=== PATIENT | male | born 1950 | race Caucasian/White ===

== ENCOUNTER → 2017-11-12 02:21 | Outpatient (CLI) | payer OTHER, SELFPAY ==
[2017-11-12 11:39] LABS: Anion Gap 5.9 mmol/L (3-11); BUN 17 mg/dL (7-18); CO2 30.1 mmol/L (21.0-32.0); CREATININE 1.17 mg/dL (0.70-1.30); Calcium 9.5 mg/dL (8.5-10.1); Chloride 104 mmol/L (98-107); Cholesterol 220 mg/dL (50-200); Glucose 115 mg/dL (70-100); HDL Cholesterol 40 mg/dL (40-60); LDL CHOLESTEROL 164 mg/dL (<100); Potassium 4.6 mmol/L (3.5-5.1); Sodium 140 mmol/L (136-145); Triglyceride 129 mg/dL (30-150)
== END ==
PROVIDERS: PCP Emergency Medicine; Visit Provider Emergency Medicine
DX: E78.5 Hyperlipidemia, unspecified (principal); I10 Essential (primary) hypertension
CPT/HCPCS: 36415; 80048; 80061; 83721

== ENCOUNTER → 2017-12-24 10:51 | Outpatient (BNVA) | payer OTHER, SELFPAY | PROVIDERS: Visit Provider Surgery | DX: K21.9 Gastro-esophageal reflux disease without esophagitis (principal); Z12.11 Encounter for screening for malignant neoplasm of colon ==

== ENCOUNTER 2018-01-16 02:44 | Outpatient (CLI) | payer OTHER, SELFPAY ==
[2018-01-16 11:36] LABS: Cholesterol 222 mg/dL (50-200); HDL Cholesterol 40 mg/dL (40-60); LDL CHOLESTEROL 170 mg/dL (<100); Triglyceride 120 mg/dL (30-150)
== END 2018-01-16 03:04 ==
PROVIDERS: PCP Emergency Medicine; Visit Provider Emergency Medicine
DX: E78.5 Hyperlipidemia, unspecified (principal)
CPT/HCPCS: 36415; 80061; 83721

== ENCOUNTER 2018-01-20 08:28 | Day surgery (SDC) | payer OTHER, SELFPAY ==
[2018-01-20 08:30] VITALS: BP 98/65; PULSE 59; RESP 18; TEMP 36.4; O2SAT 18
[2018-01-20] MEDS: Lactated Ringers 1,000 ML 30 ML IV (09:06)
--- NOTE | 2018-01-20 11:17 | W.COLOREPORT ---
Date of service: 01/20/18 Time of Service: 11:17 Colonoscopy Report Date of procedure: 01/20/18 Surgeon: Devin Swan Anesthesia proc note operative: MAC (Nelson Laird, HOWARD) Complications: None Disposition: same day Prep: Miralax/Dulcolax
--- NOTE | 2018-01-20 11:18 | W.PM.DSUDISC ---
Discharge Plan Disposition Patient Disposition: HOME Condition: Good Discharge Details Reason For Visit: GERD, Tylosis, and Colorectal cancer screening Attending Provider: Devin Swan Primary Care Provider: Robert Bajwa Home Meds and New Rx's Prescriptions: Continue multivitamin [Once Daily] 1 EACH tablet 1 tab PO DAILY RF: 0 omega-3 fatty acids-fish oil [One-Per-Day [place]-3] 1 EACH capsule,delayed release(DR/EC) 1 ea PO DAILY RF: 0 CALCIUM 600 + D TABLET 1 EACH tablet 1 ea PO DAILY RF: 0 timolol maleate 15 ML drops 1 drp OU BID RF: 0 albuterol sulfate [ProAir HFA] 8.5 GM HFA aerosol inhaler 1 - 2 puff Inhalation Q4H PRN Qty: 3 RF: 6 ranitidine HCl [Zantac Maximum Strength] 150 MG tablet 1 tab PO BID Qty: 180 RF: 4 lisinopril-hydrochlorothiazide 1 EACH tablet 1 tab-cap PO DAILY Qty: 90 RF: 4 montelukast [Singulair] 10 mg tablet 10 mg PO DAILY Qty: 90 RF: 3 lactobacillus combination no.4 [Probiotic] 3 billion cell Capsule 2 tab PO DAILY RF: 0 Discharge Instructions Instructions: Colonoscopy (DC), Upper Endoscopy (DC) Activity:: Activity as Tolerated Diet:: As Tolerated Discharge Orders Discharge Orders: Discharge Order (Routine); Ordered 01/20/18 Ordered By: Devin Swan DS: Diagnosis Discharge Diagnosis (1) GERD (gastroesophageal reflux disease): Status: Chronic (2) Encounter for screening colonoscopy: Status: Acute (3) Tylosis: Status: Chronic
--- NOTE | 2018-01-20 11:32 | STOM_PTH ---
PATIENT: Nelson Bray LOC: [facility] U#:[id number] AGE/SX: 67/M ROOM: RE01/20/[address]: Devin Swan DO : 1950 BED: DIS: 01/20/2018 SPEC #: [id number] RECD: 01/20/18 13:03 STATUS: SILVINO REQ #: [id number] BAYLEE: 01/20/18 11:[address]: Devin Swan DEPT: Surgical Specimen RECD BY: Dorcas Zambrano ENTERED: 01/20/18 13:05 SP TYPE: STOMACH OTHR DR: Robert Bajwa DO Tissues: 1 - STOMACH BIOPSY 2 - BIOPSY BOWEL Procedures: GROSS AND MICRO LEVEL 4 Comments: [id number]
[2018-01-20 13:02] VITALS: BP 109/75; PULSE 70; RESP 18; TEMP 36.4; O2SAT 99
--- NOTE | 2018-01-20 16:27 | W.COLOREPORT ---
Date of service: 01/20/18 Time of Service: 12:00 Colonoscopy Report Date of procedure: 01/20/18 Pre-op diagnosis general: 1. Gastroesophageal reflux disease 2. Tylosis 3. Fx H/O colorectal CA Post-op diagnosis procedure note: other (1. Gastritis 2. Sigmoid colon polyp 3. Moderate sigmoid diverticulosis) Procedure: 1. Esophagogastroduodenoscopy with biopsy by cold forceps 2. Colonoscopy to cecum with biopsy by cold forceps Surgeon: Devin Swan Anesthesia proc note operative: MAC (Nelson Laird CRNA; ASA 2 Mallampati class II) Estimated blood loss (mL): 1 Pathology: other (1. Gastric antral biopsy 2. Sigmoid colon polyp) Complications: None Disposition: same day Indications: 67 y/o male with history of a hiatal hernia, Tylosis Palmaris and Plantaris presents for colonoscopy and EGD screening pre-op. His last screening was in 2010, which was remarkable for polyps. He reports a family history of colon cancer in his maternal grandmother. He denies any changes in bowel habits including bloody or black tarry stools, abdominal pain, diarrhea or constipation.He denies constitutional symptoms. He reports that his GERD has been more symptomatic post prandial over the past few months despite his continued use of Zantac BID. He feels that this is related to his pharmacy changing brands for his medication. Tylosis can have a high degree of association with esophageal cancer, and he has not had a screening upper endoscopy Prep: Miralax/Dulcolax (Prep quality good) Findings: In examining the upper gastrointestinal tract from the oropharynx to the third portion of the duodenum, the patient was again noted to have a small hiatal hernia, which is not new, and gastritis was noted in the stomach. In examining the colon from cecum to anus, a less than 1 cm in greatest diameter polyp was identified in the sigmoid colon removed by cold biopsy forceps. Again, the patient was noted moderate sigmoid diverticulosis of the colon. Procedure Description: The patient was brought to the procedure room. Monitoring for telemetry, end-tidal CO2, O2 saturation, blood pressure were applied. An appropriate timeout was taken reviewing the patient's identification, allergies, medications,and procedure. Sedation was titrated for effect by the PAPER MAKING MACHINE OPERATOR. The upper endoscopy was performed first. An Olympus variable stiffness endoscope was advanced from the oropharynx to the third portion of the duodenum without difficulty. The scope was then withdrawn in circumferential manner from the duodenum back to the oropharynx. In performing withdrawal of the scope, the duodenum appeared grossly normal. The scope was withdrawn into the gastric antrum and retroflexed to examine the entire stomach. Multiple shallow ulcerations were noted in the gastric antrum, and multiple biopsies were taken of these and submitted for pathology. The remainder of the stomach including the lesser and greater curvatures anterior and posterior surfaces in the fundus all appeared grossly normal. The scope was then withdrawn to the GE junction which I measured at 35 cm The Z line was at 35 cm and appeared regular. There was a small hiatal hernia present which I measured from 35 cm to 31 cm. I withdrew the scope through the remainder of the esophagus all which appears grossly normal. The scope was then withdrawn terminating the upper endoscopy. The patient was then repositioned for colonoscopy. Sedation was titrated for effect again. Once adequate sedation was achieved, I performed a inspection of the external perineum, and a digitial rectal examination. No significant external abnormalities were noted. On digital rectal examination, there was no blood, no masses, good rectal tone. I advanced the colonoscope from the anus to the cecum under direct visualization. The cecum was identified by the ileal-cecal valve, and the appendiceal orifice. The scope was then withdrawn in circumferential manner from the cecum to the rectum. A single polyp was found in the sigmoid colon which was less than 1 cm in greatest diameter and removed by cold biopsy forceps. Again, seen in the sigmoid colon was moderate sigmoid diverticulosis, but no other abnormalities were noted of the colon. The scope was then withdrawn into the rectum, and retroflexed. No abnormalities were noted of the rectum or anorectal junction. The scope was then withdrawn, terminating the procedure. There were no complications during the procedure, and the patient tolerated the procedure well. The patient was returned to the day surgery recovery area in good condition. Plan: We will await pathology before making further recommendations.
== END 2018-01-20 13:40 | disposition home or self-care (01) ==
PROVIDERS: PCP Emergency Medicine; Visit Provider Surgery
PROC: (CPT 43239; principal; 2018-01-20 10:15)
DX: K21.9 Gastro-esophageal reflux disease without esophagitis (principal); L85.1 Acquired keratosis [keratoderma] palmaris et plantaris; K31.89 Other diseases of stomach and duodenum; K29.60 Other gastritis without bleeding; K44.9 Diaphragmatic hernia without obstruction or gangrene; Z12.11 Encounter for screening for malignant neoplasm of colon; D12.5 Benign neoplasm of sigmoid colon; K57.30 Diverticulosis of large intestine without perforation or abscess without bleeding; Z87.19 Personal history of other diseases of the digestive system; F10.10 Alcohol abuse, uncomplicated; I10 Essential (primary) hypertension
CPT/HCPCS: 43239; 45380; 88305; J2250; J3010

== ENCOUNTER 2020-01-28 02:49 | Outpatient (CLI) | payer OTHER, SELFPAY ==
[2020-01-28 10:37] LABS: BUN 18 mg/dL (7-18); CREATININE 1.11 mg/dL (0.70-1.30); Calcium 9.8 mg/dL (8.5-10.1); Calculated LDL 127 mg/dL (<100); Chloride 103 mmol/L (98-107); Cholesterol 196 mg/dL (<200); Glucose 147 mg/dL (74-106); HDL Cholesterol 44 mg/dL (40-60); Potassium 4.2 mmol/L (3.5-5.1); Sodium 139 mmol/L (136-145); Triglyceride 126 mg/dL (<150)
[2020-02-03 10:23] LABS: PSA, Screening 0.4 ng/mL (0-4.5)
== END 2020-01-28 03:09 ==
PROVIDERS: PCP Emergency Medicine; Visit Provider Emergency Medicine
DX: E78.5 Hyperlipidemia, unspecified (principal); I10 Essential (primary) hypertension; Z12.5 Encounter for screening for malignant neoplasm of prostate
CPT/HCPCS: 36415; 80048; 80061; 84153

== ENCOUNTER 2020-02-11 01:47 | Outpatient (CLI) | payer OTHER, SELFPAY ==
[2020-02-11 12:45] LABS: Hemoglobin A1C 6.1 % (<5.7)
== END 2020-02-11 02:07 ==
PROVIDERS: PCP Emergency Medicine; Visit Provider Emergency Medicine
DX: E11.9 Type 2 diabetes mellitus without complications (principal)
CPT/HCPCS: 36415; 83036

== ENCOUNTER 2020-08-17 03:19 | Outpatient (CLI) | payer OTHER, SELFPAY ==
[2020-08-17 14:19] LABS: Hemoglobin A1C 6.3 % (<5.7)
[2020-08-17 14:51] LABS: Anion Gap 9.9 mmol/L (3-11); BUN 13 mg/dL (7-18); CO2 30.1 mmol/L (21.0-32.0); CREATININE 1.1 mg/dL (0.70-1.30); Calcium 9.7 mg/dL (8.5-10.1); Calculated LDL 99 mg/dL (<100); Chloride 101 mmol/L (98-107); Cholesterol 163 mg/dL (<200); Glucose 121 mg/dL (74-106); HDL Cholesterol 47 mg/dL (40-60); Potassium 4.4 mmol/L (3.5-5.1); Sodium 141 mmol/L (136-145); Triglyceride 87 mg/dL (<150)
== END 2020-08-17 03:20 | disposition home or self-care (01) ==
LOC: LBO 03:19
PROVIDERS: PCP Emergency Medicine; Visit Provider Emergency Medicine
DX: I10 Essential (primary) hypertension (principal); E78.5 Hyperlipidemia, unspecified; R73.03 Prediabetes
CPT/HCPCS: 36415; 80048; 80061; 83036

== ENCOUNTER 2021-04-04 01:44 | Outpatient (CLI) | payer MEDICARE, SELFPAY ==
--- NOTE | 2021-04-04 | DI.MRI_ITS ---
Exam(s) MR UPPER JOINT RT WO EXAM: MR UPPER JOINT RT WO CLINICAL HISTORY: RT HAND/WRIST PAIN,M79.641,SWELLING RT WRIST,? EXTENSOR TENDON TENOSYNOVIT. TECHNIQUE: Multiplanar multisequence MRI was performed. COMPARISON: No exams were available for comparison FINDINGS: MR examination of the wrist was performed according to the usual protocol. Bones: There are cystic changes presumably on a degenerative basis involving the capitate, lunate, an d triquetrum. There is also a cysts cyst of the base of the 1st metacarpal. These findings are pres umably on a degenerative basis. There is narrowing of the cartilaginous joint spaces at multiple sit es in the carpus. Ligaments: No tear is seen involving the scapholunate, lunotriquetral, or TFC ligaments. The TFCC di sc and meniscal homolog appear intact. There is fluid in multiple carpal joints which is nonspecific. There is moderate soft tissue edema o lisa the ulnar aspect of the wrist. There is small quantity of fluid in the flexor digitorum tendon sheath. No gross tendon signal abnor mality seen but this could be associated with tenosynovitis. Extensor tendons show normal signal and no evidence of a tear. IMPRESSION: Degenerative changes of the carpus. Question tenosynovitis flexor digitorum associated with fluid in the tendon sheath at the level of th e carpal tunnel.. DATA REPOSITORY:
--- NOTE | 2021-04-04 10:41 | DI.VRAD_ITS ---
PROCEDURE INFORMATION: Exam: MR Right Upper Extremity Joint Without Contrast; Wrist Exam date and time: 04/04/2021 9:47 AM Age: 70 years old Clinical indication: Right; Prior surgery; Surgery date: 6+ months; Surgery type: Carpal tunnel 2014; Patient HX: Pain and swelling dorsal aspect of hand and wrist. No known injury TECHNIQUE: Imaging protocol: MR of the Right upper extremity without contrast. Exam focused on the wrist. COMPARISON: CR XR HAND 3 VIEW RIGHT 03/27/2021 2:25 PM (report not provided) FINDINGS: Bones and cartilage: There is moderate radiocarpal compartmental chondromalacia with very mild periarticular osteophyte formation. Mild osteophyte formation is present between some carpal bones and at the 1st carpometacarpal joint. Variable degenerative cystic changes are present within some carpal bones and the 1st metacarpal base. Some of these may represent erosion, particularly in the lunate and capitate. Joint spaces: The joint spaces are normally aligned. There are small effusions of the distal radioulnar joint, radiocarpal compartment, midcarpal compartment and 1st carpometacarpal joint. Scapholunate ligament: Mild increased signal without discrete defect or widening, suggesting sprain. Lunotriquetral ligament: Unremarkable. No tear. Triangular fibrocartilage complex: Unremarkable. No tear. Flexor compartment tendons: Small fluid is present in the flexor digitorum tendon sheath along the carpal tunnel. The flexor tendons themselves are intact. Extensor compartment tendons: Unremarkable. No tear. Muscles: Unremarkable. No acute abnormality. Soft tissues: Moderate subcutaneous edema is present about much of the wrist extending dorsally into the hand. Focus of artifact in the soft tissues over the volar aspect near the 1st metacarpal corresponds to metallic radiodensity on the radiographs. IMPRESSION: 1. Moderate nonspecific subcutaneous edema about the wrist extending into the dorsum of the hand. 2. Focus of artifact over the volar aspect near the 1st metacarpal corresponding to metallic radiodensity on radiographs of 03/27/2021. 3. Small fluid in the flexor digitorum tendon sheath along the carpal tunnel, suggesting tenosynovitis. 4. Degenerative changes as described. Potential osseous erosions, including in the lunate and capitate. Correlate as to any possible inflammatory arthritis. 5. Small effusions of the distal radioulnar and 1st carpometacarpal joints and radiocarpal and midcarpal compartments. 6. Sprain without tear of the scapholunate ligament. Dictated and Authenticated by: Mariano Brito MD. Ordering:DANITZA Klein MD
== END 2021-04-04 02:04 ==
PROVIDERS: PCP Emergency Medicine; Visit Provider Nurse Practitioner
DX: M25.531 Pain in right wrist (principal); M79.641 Pain in right hand; M79.89 Other specified soft tissue disorders; M19.031 Primary osteoarthritis, right wrist
CPT/HCPCS: 73221

== ENCOUNTER 2021-05-03 03:00 | Outpatient (CLI) | payer MEDICARE, SELFPAY ==
[2021-05-03 11:37] LABS: Hemoglobin A1C 6.3 % (<5.7)
[2021-05-03 12:35] LABS: ALT 25 U/L (16-63); Anion Gap 9.5 mmol/L (3-11); BUN 19 mg/dL (7-18); CO2 28.5 mmol/L (21.0-32.0); Calcium 9.9 mg/dL (8.5-10.1); Calculated LDL 115 mg/dL (<100); Chloride 102 mmol/L (98-107); Cholesterol 185 mg/dL (<200); Glucose 100 mg/dL (74-106); HDL Cholesterol 51 mg/dL (40-60); Potassium 4.4 mmol/L (3.5-5.1); Sodium 140 mmol/L (136-145); Triglyceride 99 mg/dL (<150)
== END 2021-05-03 03:01 | disposition home or self-care (01) ==
LOC: LBO 03:00
PROVIDERS: PCP Family Medicine; Visit Provider Family Medicine
DX: E78.5 Hyperlipidemia, unspecified (principal); I10 Essential (primary) hypertension; R73.03 Prediabetes
CPT/HCPCS: 36415; 80048; 80061; 83036; 84460

== ENCOUNTER 2022-05-13 00:56 | Outpatient (CLI) | payer MEDICARE, SELFPAY ==
[2022-05-13 13:04] LABS: Hemoglobin A1C 5.9 % (<5.7)
[2022-05-13 13:07] LABS: Anion Gap 5.2 mmol/L (3-11); BUN 18 mg/dL (7-18); CO2 30.8 mmol/L (21.0-32.0); CREATININE 1.3 mg/dL (0.70-1.30); Calcium 10.4 mg/dL (8.5-10.1); Calculated LDL 111 mg/dL (<100); Chloride 104 mmol/L (98-107); Cholesterol 198 mg/dL (<200); Glucose 110 mg/dL (74-106); HDL Cholesterol 54 mg/dL (40-60); Potassium 4.6 mmol/L (3.5-5.1); Sodium 140 mmol/L (136-145); Triglyceride 168 mg/dL (<150)
[2022-05-13 18:11] LABS: PSA, Screening 0.4 ng/mL (<=6.5)
[2022-05-13 20:27] LABS: Lab Add On Test DONE
[2022-05-14 18:40] LABS: Parathyroid Hormone,Intact 52 pg/mL (19-88)
== END 2022-05-13 00:57 | disposition home or self-care (01) ==
LOC: LOS 00:56
PROVIDERS: PCP Family Medicine; Visit Provider Family Medicine
DX: E78.5 Hyperlipidemia, unspecified (principal); I10 Essential (primary) hypertension; R73.03 Prediabetes; E87.1 Hypo-osmolality and hyponatremia; E83.52 Hypercalcemia; Z12.5 Encounter for screening for malignant neoplasm of prostate
CPT/HCPCS: 36415; 80048; 80061; 84153; 83036; 83970

== ENCOUNTER → 2023-01-01 13:55 | Outpatient (BNVA) | payer MEDICARE, SELFPAY | PROVIDERS: PCP Family Medicine; Referring Provider Family Medicine; Visit Provider Surgery | DX: Z12.11 Encounter for screening for malignant neoplasm of colon (principal) ==

== ENCOUNTER 2023-01-23 07:36 | Day surgery (SDC) | payer MEDICARE, SELFPAY ==
--- NOTE | 2023-01-22 17:16 | PDOC.DSDIS_ITS ---
Date of service: 01/23/23 Time of Service: 09:51 Discharge Plan Disposition Patient Disposition: Home Condition: Good Discharge Details Reason For Visit: Screening colonoscopy Attending Provider: Andrea Fernando Primary Care Provider: Dk Russell Home Meds and New Rx's Prescriptions: New famotidine [Pepcid] 40 mg tablet 40 mg PO DAILY Qty: 30 3RF Rx Instructions: Take 1 tablet by mouth every day. Continued vitamin B complex Tablet 1 tab PO DAILY Qty: 90 3RF lisinopril-hydrochlorothiazide 10-12.5 mg tablet 1 tab PO DAILY Qty: 90 4RF pravastatin 20 mg tablet 20 mg PO DAILY Qty: 90 3RF multivitamin [Once Daily] 1 EACH tablet 1 tab PO DAILY One-Per-Day [place]-3 1 EACH capsule,delayed release(DR/EC) 1 ea PO DAILY CALCIUM 600 + D TABLET 1 EACH tablet 1 ea PO DAILY timolol maleate 15 ML drops 1 drp OU BID fluticasone propionate 50 mcg/actuation spray,suspension 2 spray intranasal DAILY Qty: 48 4RF Rx Instructions: administer into each nostril Discontinued bisacodyl 5 mg tablet,delayed release (DR/EC) 5 mg PO ONCE Qty: 4 0RF Rx Instructions: Per Colonoscopy bowel prep instructions polyethylene glycol 3350 17 gram/dose powder 238 g PO ONCE Qty: 238 0RF Rx Instructions: For Colonoscopy bowel prep, as directed by office Discharge Instructions Instructions: Peptic Ulcer (GEN), Diverticulosis (GEN), Colorectal Polyps (GEN), Diverticulosis Diet (GEN) Additional Instructions: Nelson, we were able to complete your upper and lower endoscopies today without any difficulty. There were a few abnormal findings on your upper endoscopy. First, you have a few prepyloric gastric ulcers. These are small stomach ulcers in the area right before where your stomach connects to your small intestine. They appear to be simple ulcers to me, but I did do several biopsies to rule out any other sources of ulceration. I am adding a prescription for a medication to help reduce stomach acid, hopefully this will help the stomach ulcers to heal. Secondly, you have a hiatal hernia. A hiatal hernia occurs when the muscle around your swallowing pipe is slightly enlarged, allowing a small portion of your stomach to slip above the muscle from time to time. There is an operation to fix this, but in light of the fact that you you seem to have minimal symptoms, I do not think that surgery is warranted. Furthermore, it is an operation that I do not perform. If you would like a referral to a specialist to hear their opinion, I am more than happy to provide that. Lastly, you had a few small abnormalities along the length of your esophagus. Mostly they were in the midportion of the esophagus. They appear consistent with polyps to me. I performed multiple biopsies here to better clarify the nature of the tissue. Your colonoscopy also revealed a few abnormalities. First you have diverticulosis. Diverticula are weak spots in the colon wall that typically accumulate with age. They can become infected, and when that happens, patients typically have severe pain usually on the left side of their abdomen, or across the middle portion towards the bottom. This is usually associated with fevers. During those times, it should be treated with antibiotics. Otherwise, maintaining a balanced diet that is rich in fiber is probably the most useful strategy. You have some internal hemorrhoids as well. Finally, I did find 2 polyps. I removed these both. Just like the biopsies from the upper endoscopy, these will be sent off for testing. Once I have that information I will be in touch with my next recommendations. 1. If tolerated, consume a soft, low fiber diet for 1-2 days. 2. Do not drive, drink alcohol, operate machinery, make critical decisions, or do activities that require coordination or balance for 24 hours. 3. Because air was put into your colon during the procedure, expelling air from your rectum (passing gas or farting) is normal. 4. You may not have a bowel movement for 1-3 days because of the colonoscopy prep. This is normal. 5. You may experience a sore throat for 24 to 48 hours. You may use throat lozenges or gargle with warm salt water to relieve the discomfort. 6. Because air was put into your stomach during the procedure, you may experience some belching. 7. Go directly to the emergency room if you notice any of the following: Develop chills (warm to touch), or if you have a thermometer and your temperature is above 101 Difficulty breathing or difficultly swallowing Persistent vomiting Severe abdominal pain, other than gas cramps Severe chest pain Black, tarry stools Any bleeding ? exceeding one tablespoon 8. Call your physician if the site where your intravenous was started becomes red, swollen, painful, and warm to touch. 9. Your physician has reviewed your pre-procedure medications. Please continue to take those medications as previously ordered. You will be given specific information/education regarding any changes to your medications before leaving. Activity:: Activity as Tolerated Diet:: As Tolerated Discharge Orders Discharge Orders: Discharge Order (Routine); Ordered 01/22/23 Ordered By: Andrea Fernando DS: Diagnosis Discharge Diagnosis (1) Screen for colon cancer: Status: Acute Asessment and Plan: Follow-up on biopsy results
--- NOTE | 2023-01-22 17:18 | W.COLOREPORT ---
Date of service: 01/23/23 Time of Service: 09:57 Colonoscopy Report Date of procedure: 01/23/23 Pre-op diagnosis general: Screening colonoscopy and screening EGD because of history of tylosis Post-op diagnosis procedure note: other (Peptic ulcers, grade 4 hiatal hernia, esophageal polyps; grade 2 internal hemorrhoids, diverticulosis, colon polyps) Procedure: EGD with biopsies, colonoscopy with polypectomy Surgeon: Andrea Fernando Anesthesia Type: General:No Airway Estimated blood loss (mL): 15 Pathology: other (Gastric ulcers, gastric antrum and body random biopsies, esophageal polyps; 0.25 cm colon polyp at 110 cm, 0.5 cm polyp at 50 cm) Complications: None Disposition: same day Indications: Nelson is a 72-year-old male who needs another screening colonoscopy Prep: Miralax/Dulcolax Procedure Start Time: 08:59 Procedure End Time: 09:34 Retraction Time: 16 Findings: Prepyloric gastric ulcers, grade 4 hiatal hernia, esophageal polyp; grade 2 internal hemorrhoids, diverticulosis, colon polyps Procedure Description: After the initiation of monitored anesthetic care, and with the assistance of a bite block, I advanced a standard gastroscope through the mouth past the hypopharynx and into the esophagus.? Under the direct vision of the scope, I advanced down the esophagus into the stomach.? Once I entered the stomach, I performed a brief inspection, followed by retroflexion towards the gastric cardia.? There is a Hill grade 4 hiatal hernia.? After that, I gently advanced the scope around the incisura angularis and examined the pylorus.? There were 2 areas of prepyloric gastric ulceration. The first was on the underside of the pylorus, slightly towards the greater curvature. There was another area just along the incisura angularis. Biopsies of these lesions was performed. There was minimal bleeding.? Next, I advanced the scope through the pylorus into the duodenum.? The mucosa was pink and healthy appearing.? There were no abnormalities.? I then brought the camera back into the stomach and carefully examined the gastric antrum body and cardia. These all appeared normal aside from the ulceration that was previously mentioned. next, I brought the camera up to the GE junction. The Z-line and GE junction were normal-appearing at 35 cm from the incisors, although they did slide across the hiatal hernia site. Next, I backed the EGD scope out along the length of the esophagus. Along the midportion of the esophagus were a few small areas of elevated mucosa. They had a papule like appearance. There was no ulceration. I did perform biopsy, rest post polypectomy of the sites with cold forceps. There was minimal bleeding. I then brought the camera back into the stomach, empty the insufflation, and gently backed the camera out along the length of the esophagus. Next we moved Nelson into the left lateral decubitus position. I began by performing an external anorectal exam.? Perineum and skin were normal, as was the anal verge.? There was no not evidence of external hemorrhoids.? Next, I performed a digital rectal exam.? I did appreciate any abnormal findings.? Next, I advanced a colonoscope into the rectal vault.? I performed retroflexion.? There are grade 2 internal hemorrhoids.? Using insufflation, I then advanced the colonoscope beyond the rectal folds and into the sigmoid colon before advancing towards the cecum.? There was extensive sigmoid diverticulosis extending from about 25 cm beyond the anal verge to about 55 or 60 cm from the anal verge. Beyond this there was some random diverticuli scattered along the length of the remainder of the colon..? The scope was noted to be in the cecum by identification of the ileocecal valve and appendiceal orifice.? I then began withdrawing the colonoscope using repeated irrigation as necessary for full evaluation of the colonic mucosa. Around 110 cm from the anal verge I identified a 0.25 cm polyp. ?It appeared sessile in character. ?I was able to remove this with a cold forcep polypectomy. ?I examined the site, and there was minimal bleeding. ?Once this was completed, I continued to withdraw the scope and examine the remainder of the colonic mucosa.? Around 55 cm from the anal verge was another polyp. It was associated with the diverticula. In that regard, I suspect this may be a inflammatory polyp. It was gently elevated off the diverticula site, and removed with cold forceps polypectomy. There was minimal bleeding. Once the scope was withdrawn to the level of the rectum, great care was taken to examine portions of the rectal folds.? Finally, the scope was withdrawn and the patient was brought to the same-day surgery recovery unit as the anesthetic wore off. ?The findings and instructions were shared with the patient prior to discharge. [place] Bowel Prep [place] Bowel Prep Right Colon: 2 Left Colon: 3 Transverse Colon: 3 Total Score: 8
[2023-01-23] VITALS (7 sets, daily range): BP systolic 91–120; BP diastolic 60–68; PULSE 58–76; RESP 16; TEMP 36.1–36.5; O2SAT 88–97; BMI 28.1
[2023-01-23] MEDS: Lactated Ringers 1,000 ML 80 ML IV (08:15)
--- NOTE | 2023-01-23 08:46 | ANES.PREOP_ITS ---
General Info Date of Service Date Performed: 01/23/23 Height: 5 ft 5 in Weight: 76.8 kg Body Mass Index (BMI): 28.1 Surgical Procedure: Operation Date: 01/23/23 09:05 Proposed Procedure Side Surgeon p Colonoscopy/Gastroscopy Andrea Fernando MD Actual Procedure Side Surgeon p Colonoscopy/Gastroscopy Not Applicable Andrea Fernando MD Pre-Op Diagnosis Post-Op Diagnosis Screening colonoscopy Meds Allergies and Home Medications Allergies Allergy/AdvReac Type Severity Reaction Status Date / Time No Known Allergies Allergy Verified 01/23/23 07:57 Home Medication Medication Instructions Recorded multivitamin (Once Daily tablet) 1 tab PO DAILY 07/13/12 Calcium 600 + D Tablet 1 ea PO DAILY 10/18/13 omega-3 fatty acids-fish oil 684 1 ea PO DAILY 10/18/13 mg-1,200 mg capsule,delayed release (One-Per-Day [place]-3) timolol maleate 0.5 % eye drops 1 drp OU BID 08/09/15 fluticasone propionate 50 2 spray intranasal DAILY #48 grams 01/09/22 mcg/actuation nasal spray,suspension lisinopril 10 1 tab PO DAILY #90 tab-caps 05/08/22 mg-hydrochlorothiazide 12.5 mg tablet pravastatin 20 mg tablet 20 mg PO DAILY #90 tabs 05/08/22 vitamin B complex 1 tab PO DAILY #90 tabs 05/08/22 Current Visit Medications: Current Medications Generic Name Dose Route Start Last Admin Trade Name Freq PRN Reason Stop Dose Admin Hyoscyamine Sulfate 0.125 mg 01/22/23 17:19 Hyoscyamine 0.125 Mg Sl/Oral/Chew SL 02/21/23 17:18 DIRECTED PRN Ringer's Solution 1,000 mls @ 80 mls/hr 01/23/23 06:00 01/23/23 08:15 IV 01/23/23 23:59 80 mls/hr INFUSION YARIEL Administration IV Miscellaneous Supplies 1 each 01/23/23 06:00 Iv Access IV 01/23/23 23:59 DIRECTED YARIEL Ondansetron HCl 4 mg 01/22/23 17:19 Ondansetron 4 Mg/2 Ml Vial IVP 02/21/23 17:18 Q4H PRN PRN Nausea / Vomiting Sodium Chloride 0 ml 01/23/23 06:00 Normal Saline Flush 10 Ml Syr IV 01/23/23 23:59 PRN PRN Sodium Chloride 0 ml 01/23/23 06:00 Normal Saline 10 Ml Vial IJ 01/23/23 23:59 DIRECTED PRN Sterile Water 0 ml 01/23/23 06:00 Water,Injection,Sterile 10 Ml Vial IJ 01/23/23 23:59 DIRECTED PRN PFSH Active Problems Active Problems: Problem Status Onset Code Screen for colon cancer Z12.11 Hypercalcemia E83.52 Kidney stone N20.0 Skin cancer, basal cell C44.91 Essential hypertension I10 Prediabetes R73.03 Hyperlipidemia E78.5 Tubular adenoma of colon ~01/20/18 D12.6 Tylosis 10/20/14 L84 Internal hemorrhoids without complication K64.8 Hiatal hernia K44.9 Glaucoma of both eyes 11/18/17 H40.9 GERD (gastroesophageal reflux disease) 10/20/14 K21.9 Cardiac arrhythmia 04/03/12 I49.9 Allergic rhinitis due to other allergen 03/23/15 J30.89 Allergic rhinitis J30.9 Alcohol abuse F10.10 Medical History Medical History Alcohol abuse Diverticulosis Hiatal hernia History of back surgery Hyperlipidemia type IV Hypertension Internal hemorrhoid Right inguinal hernia Right kidney stone Seasonal rhinitis Smoking Medical History Comments:: pt's states he takes more time to wake up post- anesthesia. pt does not recall this Surgical History Surgical History Colonoscopy - [facility] 2007 EGD - [facility] 2001 H/O colonoscopy (01/20/18) Dr Gonzales, tubular adenoma, repeat in five years. H/O colonoscopy (01/20/18) 02/20/18 dr gonzales, tubular adenoma, repeat five years HERNIA REPAIR (~2005) RIGHT MESH REPAIR History of esophagogastroduodenoscopy (EGD) (01/20/18) Dr Gonzales, repeat PRN History of esophagogastroduodenoscopy (EGD) (01/20/18) 02/20/18 dr gonzales, tylosis, repeat 3 years Lithotripsy 2002 Tobacco Smoking/Tobacco Use Status: Former Tobacco Use Passive smoking exposure: Yes Second hand exposure: Yes Alcohol Alcohol Intake: former Substance Use Substance use: Current Sobriety Substance use type: does not use Vital Signs and Lab Results Vital Signs Most Recent Vital Signs in EMR: Most Recent Vital Signs Temp Pulse Resp BP Pulse Ox 36.1 C L 62 16 120/68 97 01/23/23 07:48 01/23/23 07:48 01/23/23 07:48 01/23/23 07:48 01/23/23 07:48 Lab Results Blood Type / Crossmatch: No Data to Display Complete Blood Count: No Data to Display Complete Metabolic Panel: No Data to Display Liver Function Panel: No Data to Display Coagulation Panel: No Data to Display Cardiac Panel: No Data to Display Arterial Blood Gas: No Data to Display Venous Blood Gas: No Data to Display Pancreas Panel: No Data to Display Thyroid Panel: No Data to Display Infectious Disease: No Data to Display Blood Cultures: No Data to Display Toxicology Panel: No Data to Display Anesthesia Assessment and Plan Anesthesia History Personal History: No History of Anesthesia Complications Family History: No Family History of Anesthesia Complications Exercise Tolerance Exercise Tolerance: Metabolic Equivalents>4 Pertinent Negatives Pertinent Negatives: No Symptoms of GERD Cardiac & Pulmonary Exam Cardiac Exam: Normal S1/S2 Heart Sounds Pulmonary Exam: Clear Bilateral Breath Sounds Implantable Cardiac Device Does patient have a Pacemaker or an ICD?: No Airway Exam Known Difficult Airway: No Mallampati Class: 2 Mouth Opening: Normal (> 3cm) Thyromental Distance: Greater than 3 cm Neck Range of Motion: Full ROM Neck Circumference: Normal Teeth Condition: Normal Dentition ASA Classification ASA Score: ASA 2 Emergency Case?: No NPO Status NPO Status: NPO Clears >2 hours, Solids >8 hours Anesthesia Plan Resuscitation Status: Full Code Anesthesia Technique: General Anesthesia Airway Planned: Natural Airway Monitors Used: Standard Monitors
--- NOTE | 2023-01-23 09:00 | STOM_PTH ---
PATIENT: Nelson Bray LOC: [facility] U#:[id number] AGE/SX: 72/M ROOM: RE01/23/[address]: Andrea Fernando MD : 1950 BED: DIS: 01/23/2023 SPEC #: [id number] RECD: 01/23/23 12:41 STATUS: SILVINO RE #: [id number] BAYLEE: 01/23/23 09:[address]: Andrea Fernando DEPT: Surgical Specimen RECD BY: Dorcas Zambrano ENTERED: 01/23/23 12:42 SP TYPE: STOMACH OTHR DR: Dk Russell MD Tissues: 1 - STOMACH BIOPSY 2 - STOMACH BIOPSY 3 - STOMACH BIOPSY 4 - ESOPHAGUS BIOPSY 5 - BIOPSY BOWEL 6 - BIOPSY BOWEL Procedures: GROSS AND MICRO LEVEL 4 Comments: [id number]
--- NOTE | 2023-01-23 10:24 | W.ANESPOSTOP ---
Postoperative Evaluation Date, Time and Location Date Performed: 01/23/23 Time Performed: 10:24 Patient Location: Day Surgery Unit Vital Signs Most Recent Imported Vital Signs: Most Recent Vital Signs Temp Pulse Resp BP Pulse Ox 36.5 C 64 16 93/65 L 94 01/23/23 10:10 01/23/23 10:10 01/23/23 10:10 01/23/23 10:10 01/23/23 10:10 Pain Score Most Recent Pain Score: Most Recent Pain Score Pain Level 0 01/23/23 10:10 Assessment Mental Status: Awake (Alert & Oriented to Patient Baseline) Airway and Respiratory Function: Patent airway with normal (patient baseline) respiratory exam Cardiovascular Function: Hemodynamically Stable Hydration Status: Adequately Hydrated Nausea & Vomiting: No Nausea or Vomiting Pain: Pt. Denies Any Pain Peripheral Nerve Block: Patient did not receive a nerve block
== END 2023-01-23 10:48 | disposition home or self-care (01) ==
LOC: SUR 07:36
PROVIDERS: PCP Family Medicine; Visit Provider Surgery
PROC: (CPT 43239; principal; 2023-01-23 09:00)
DX: Z13.810 Encounter for screening for upper gastrointestinal disorder; I10 Essential (primary) hypertension; Z12.11 Encounter for screening for malignant neoplasm of colon; K21.9 Gastro-esophageal reflux disease without esophagitis; K57.30 Diverticulosis of large intestine without perforation or abscess without bleeding; K63.5 Polyp of colon; K56.3 Gallstone ileus; K25.9 Gastric ulcer, unspecified as acute or chronic, without hemorrhage or perforation
CPT/HCPCS: 43239; 45380; 88305; J2001

== ENCOUNTER → 2023-04-26 12:49 | Outpatient (CLI) | payer MEDICARE, SELFPAY ==
--- NOTE | 2023-04-26 13:15 | DI.RAD_ITS ---
Exam(s) XR KNEE LT 3V AP,LAT,ZAHRAA EXAM: XR KNEE LT 3V AP,LAT,ZAHRAA CLINICAL HISTORY: knee pain. TECHNIQUE: 2D digital imaging was performed of the left knee. Three images were obtained. AP, late ral and PA tunnel views were obtained. COMPARISON: No exams were available for comparison FINDINGS: BONES: No acute fracture is present. No bony destructive lesion is seen. There is an enthesophyte at the anterior patella. JOINTS: The knee is normally aligned. There is a small suprapatellar joint effusion. No loose body. SOFT TISSUE: Normal. IMPRESSION: 1. No acute fracture or dislocation. 2. Small joint effusion. DATA REPOSITORY: RADIATION DOSE DELIVERED:
--- NOTE | 2023-04-26 13:48 | DI.VRAD_ITS ---
PROCEDURE INFORMATION: Exam: XR Left Knee Exam date and time: 04/26/2023 1:25 PM Age: 72 years old Clinical indication: Other: Knee pain TECHNIQUE: Imaging protocol: Radiologic exam of the left knee. Views: 3 views. COMPARISON: No relevant prior studies available. FINDINGS: Bones/joints: Small joint effusion. No fracture or dislocation. Normal bone mineralization. Soft tissues: Unremarkable. IMPRESSION: No evidence for acute bony injury. If clinical symptoms persist recommend followup film in 7-10 days. Dictated and Authenticated by: Lizabeth Walden MD. Ordering:LUKAS Brenner MD
== END ==
PROVIDERS: PCP Family Medicine; Visit Provider Physician Assistant
DX: M25.562 Pain in left knee (principal)
CPT/HCPCS: 73562

== ENCOUNTER → 2023-04-28 10:25 | Outpatient (CLI) | payer MEDICARE, SELFPAY ==
--- NOTE | 2023-04-28 08:00 | DI.US_ITS ---
Exam(s) US LOWER EXTREMITY VENOUS LT EXAM: US LOWER EXTREMITY VENOUS LT CLINICAL HISTORY: left knee pain, swelling left leg r/o dvt M79.89 SOFT TISSUE DISORDER TECHNIQUE: Left lower extremity venous ultrasound performed using grayscale, color-flow, and spectra l Doppler analysis. COMPARISON: No exams were available for comparison FINDINGS: The left common femoral, femoral and popliteal veins demonstrate normal compressibility, augmentation , and color Doppler. The posterior tibial veins are patent. The saphenofemoral junction is unremarka ble. There is no evidence of a Chahal cyst. The soft tissues are unremarkable. IMPRESSION: No evidence of a left lower extremity DVT. DATA REPOSITORY:
== END ==
PROVIDERS: PCP Family Medicine; Visit Provider Physician Assistant
DX: M79.89 Other specified soft tissue disorders (principal)
CPT/HCPCS: 93971

== ENCOUNTER 2023-04-29 15:11 | Outpatient (CLI) | payer MEDICARE, SELFPAY ==
[2023-04-29 11:40] LABS: ESR 3 mm/hr (0-20)
[2023-04-29 11:58] LABS: Uric Acid 6.6 mg/dL (3.5-7.2)
[2023-04-29 17:30] LABS: Rheumatoid Factor <8.6 IU/mL (<12.0)
[2023-04-30 10:44] LABS: Lyme Ab w Rflx to Lyme Confirm Negative (Negative)
[2023-04-30 12:33] LABS: ANA Interpretation Positive (Negative); ANA Titer Pattern 1:80 Homogeneous
[2023-05-02 20:09] LABS: Anaplasma phagocytophilum Negative (Negative); B. miyamotoi PCR Negative (Negative); Babesia divergens/MO-1 Negative (Negative); Babesia duncani Negative (Negative); Babesia microti Negative (Negative); Ehrlichia chaffeensis Negative (Negative); Ehrlichia ewingii/canis Negative (Negative); Ehrlichia muris eauclairensis Negative (Negative)
== END 2023-04-29 15:12 | disposition home or self-care (01) ==
LOC: LBO 15:12
PROVIDERS: PCP Family Medicine; Visit Provider Physician Assistant
DX: M25.562 Pain in left knee (principal)
CPT/HCPCS: 36415; 85652; 87798; 84550; 86038; 86431; 86618

== ENCOUNTER 2023-05-07 02:57 | Outpatient (CLI) | payer MEDICARE, SELFPAY ==
[2023-05-09 15:26] LABS: dsDNA Ab, IgG <22.0 IU/mL (<27.0)
== END 2023-05-07 02:58 | disposition home or self-care (01) ==
PROVIDERS: PCP Family Medicine; Visit Provider Family Medicine
DX: R76.8 Other specified abnormal immunological findings in serum (principal)
CPT/HCPCS: 36415; 86225

== ENCOUNTER 2023-06-25 16:02 | Outpatient (CLI) | payer MEDICARE, SELFPAY ==
[2023-06-25 12:56] LABS: Anion Gap 5.9 mmol/L (3-11); BUN 16 mg/dL (7-18); CO2 28.1 mmol/L (21.0-32.0); CREATININE 1.1 mg/dL (0.70-1.30); Calcium 9.7 mg/dL (8.5-10.1); Chloride 106 mmol/L (98-107); Estimated GFR 71.77 (mL/min/1.73m2); Glucose 112 mg/dL (74-106); Sodium 140 mmol/L (136-145)
== END 2023-06-25 16:03 | disposition home or self-care (01) ==
LOC: LOS 16:02
PROVIDERS: PCP Family Medicine; Visit Provider Family Medicine
DX: E87.1 Hypo-osmolality and hyponatremia (principal)
CPT/HCPCS: 36415; 80048

== ENCOUNTER 2024-07-19 10:05 | Emergency (ER) | payer MEDICARE, SELFPAY ==
[2024-07-19 10:09] VITALS: BP 145/85; PULSE 78; RESP 12; TEMP 36.6; O2SAT 99
--- NOTE | 2024-07-19 10:33 | ED.GENADUL_ITS ---
Discharge Plan Disposition Patient Disposition: Home Condition: Stable Discharge Details Clinical Impression: Acute rhinosinusitis, Allergic rhinitis Primary Care Provider: Dk Russell ED Provider: Britt Francis Home Meds and New Rx's Prescriptions: New amoxicillin-pot clavulanate 875-125 mg tablet 1 tab PO BID 7 Days Qty: 14 0RF No Action multivitamin [Once Daily] 1 EACH tablet 1 tab PO DAILY One-Per-Day [place]-3 1 EACH capsule,delayed release(DR/EC) 1 ea PO DAILY CALCIUM 600 + D TABLET 1 EACH tablet 1 ea PO DAILY timolol maleate 15 ML drops 1 drp OU BID fluticasone propionate 50 mcg/actuation spray,suspension 2 spray intranasal DAILY Qty: 48 4RF Rx Instructions: administer into each nostril lisinopril-hydrochlorothiazide 10-12.5 mg tablet 1 tab PO DAILY Qty: 90 4RF pravastatin 20 mg tablet 20 mg PO DAILY Qty: 90 3RF Discharge Instructions Instructions: Sinusitis, Adult ED Additional Instructions: You were seen in the emergency department today for evaluation of nasal congestion and sinus pressure concerning for sinusitis. In our department you had a full physical examination performed, and had reassuring vital signs with no fever or oxygen problems. I am most concerned for sinus infection, these are typically viral but given the duration of symptoms and your history it is reasonable for us to provide you a course of antibiotics. I recommend that you monitor your symptoms for the next few days, and if you notice that they are improving on their own you do not have to start the antibiotic. However, if they are continuing you should initiate treatment, I have provided you a prescription for a medication called Augmentin, which you will take for 7 days. Please take all of this medication until it is gone, even if you start to feel better. Continue your Flonase and oral allergy medication, as well as any ciea-[id number] medications that are helpful. Please follow-up with your primary care provider in the next few days to discuss this visit and any symptoms that change, worsen, or persist. Thank you for allowing us to be part of your care. HPI General Mode of arrival: ambulatory . Date/Time Provider Initiated Documentation: 07/19/24 10:06 . Limitations to Documentation: no limitations . Information obtained by: patient, family and old records reviewed . HPI Narrative: HISTORY OF PRESENT ILLNESS The patient is a 73-year-old male who presents to the emergency room with chest congestion. He has been experiencing chest congestion for approximately one week, accompanied by itchy eyes. Initially, he attributed these symptoms to allergies, but the severity of the congestion and the presence of greenish-yellow phlegm have led him to seek medical attention. He reports nasal dryness during sleep, which impedes his ability to breathe through his nose upon waking. Nasal discharge contains dried blood, and he suspects postnasal drip at night. His cough produces mostly white sputum, with a slight yellowish tinge noted this morning. Despite feeling physically well, he reports fatigue but no sleep disturbances. He has not monitored his temperature at home and reports no fevers or chills. He also reports no changes in vision, such as double vision or loss of vision, but notes a slight haziness, and feels like his eyes are watering. He maintains adequate hydration and nutrition and reports no recent sick contacts. He experiences throat discomfort due to coughing and uses cough drops for relief. He has a history of sinus infections, for which he was previously under the care of Dr. Pierre and was prescribed Flonase, which he continues to use. He has been managing his symptoms with Mucinex, Sudafed, and Tylenol, all oukt-vrz-ivwddqv medications. He has not required antibiotics for several years. He uses a humidifier throughout the winter due to forced hot air heat and changes the filters monthly. He has a history of high blood pressure and is currently on lisinopril. Related Data Home Medications ?Medication ?Instructions ?Recorded ?Confirmed multivitamin (Once Daily tablet) 1 tab PO DAILY 07/13/12 07/19/24 Calcium 600 + D Tablet 1 ea PO DAILY 10/18/13 07/19/24 omega-3 fatty acids-fish oil 684 1 ea PO DAILY 10/18/13 07/19/24 mg-1,200 mg capsule,delayed release (One-Per-Day [place]-3) timolol maleate 0.5 % eye drops 1 drp OU BID 08/09/15 07/19/24 fluticasone propionate 50 2 spray intranasal DAILY #48 grams 11/24/23 07/19/24 mcg/actuation nasal spray,suspension lisinopril 10 1 tab PO DAILY #90 tab-caps 11/24/23 07/19/24 mg-hydrochlorothiazide 12.5 mg tablet pravastatin 20 mg tablet 20 mg PO DAILY #90 tabs 11/24/23 07/19/24 amoxicillin 875 mg-potassium 1 tab PO BID 7 days #14 tabs 07/19/24 clavulanate 125 mg tablet Previous Rx's ?Medication ?Instructions ?Recorded fluticasone propionate 50 2 spray intranasal DAILY #48 grams 11/24/23 mcg/actuation nasal spray,suspension lisinopril 10 1 tab PO DAILY #90 tab-caps 11/24/23 mg-hydrochlorothiazide 12.5 mg tablet pravastatin 20 mg tablet 20 mg PO DAILY #90 tabs 11/24/23 amoxicillin 875 mg-potassium 1 tab PO BID 7 days #14 tabs 07/19/24 clavulanate 125 mg tablet Allergies Allergy/AdvReac Type Severity Reaction Status Date / Time No Known Allergies Allergy Verified 07/19/24 10:14 General Stated Complaint: RespSymp JOURDAN: 4 Exam Narrative Exam Narrative: Gen: awake and alert, in no apparent distress. Appears well nourished. HEENT: PERRL, EOMs full and without nystagmus. External ears and nose normal, TMs clear mucous membranes moist. Left nare with scant dried blood appreciated, no active hemorrhage. Posterior pharynx without erythema, exudate, or swelling Neck: Supple, full range of motion, no observable masses. no lymphadenopathy palpated, mobile thyroid without palpable nodules Lungs: No increased work of breathing, lung sounds clear and equal bilaterally without wheezes, rhonchi, or rales. CV: Heart with regular rate and rhythm, no murmurs auscultated. Strong and symmetrical radial pulses. Abdomen: Soft, nondistended, non-tender to palpation. No rigidity, rebound tenderness, or guarding. MSK: No joint swelling, no redness. Full ROM without limitation, no external traumatic findings. Skin: No rashes or lesions to visualized skin. Normal color, warm, and dry. Neuro: No facial droop, preserved strength x 4 extremities without asymmetry. No sensory deficits. Ambulates with steady gait. Psych: Appropriate for situation. Course Vital Signs Vital signs: Vital Signs Temperature 36.6 C 07/19/24 10:09 Pulse 78 07/19/24 10:09 Respiratory Rate 12 07/19/24 10:09 Blood Pressure 145/85 H 07/19/24 10:09 Pulse Oximetry 99 07/19/24 10:09 Temperature 36.6 C 07/19/24 10:09 Temperature Source Oral 07/19/24 10:09 Pulse 78 07/19/24 10:09 Respiratory Rate 12 07/19/24 10:09 Respiratory Effort Normal, Non-Labored 07/19/24 10:13 Respiratory Depth Normal 07/19/24 10:13 Blood Pressure 145/85 H 07/19/24 10:09 Blood Pressure Position Sitting 07/19/24 10:09 Pulse Oximetry 99 07/19/24 10:09 Oxygen Delivery Method Room Air 07/19/24 10:09 Oxygen Flow Rate 0 07/19/24 10:09 Medical Decision Making This is a 73-year-old male patient with a history of sinus infections, hypertension, and allergic rhinitis who is presenting for evaluation of 1 week of nasal congestion, bloody nasal sputum, and cough with postnasal drip. My differential includes but is not limited to rhinosinusitis, most likely viral although bacterial could be considered in this patient with persistent symptoms. I am reassured by his lack of fever, and he has no focal lung findings to suggest pneumonia or bronchitis. I suspect his cough is likely in the setting of postnasal drip. He has no evidence for bacterial conjunctivitis, I am most concerned for allergic conjunctivitis in this patient. No otitis media on physical examination, the patient appears well-hydrated, hemodynamically appropriate and is afebrile and oxygenating well at this time. ED Course: I had an extended conversation with the patient regarding risks and benefits of various diagnostic modalities. Given the duration of symptoms I do not feel that a viral swab would change this patient's clinical course, as he would not be a candidate for Paxlovid or Tamiflu. Additionally, with his lack of fever, hypoxia, and focal respiratory findings I have a lower concern for pneumonia and do not feel that the patient needs an urgent chest x-ray. We discussed antibiotic use and sinus infections, and I will send a just in case antibiotic, Augmentin, to his pharmacy to be taken if his symptoms do not improve spontaneously over the next 2 to 3 days. The patient understands to continue to use supportive care, including his Flonase, Riana, ytso-cka-bnplmbm medications and good hydration and nutrition. - Prescription: Augmentin sent to [facility] in [place] Clinical Impression: - Viral infection - Hypertension Disposition: - Discharge - Follow-Up: Inform primary care physician, Dr. Russell, about the visit and treatment plan. Patient Education: Advised to continue using Riana for allergy management, complete antibiotic course if started, and return if experiencing fever or breathing difficulties. MDM Components Evaluation: - Number of Differential Diagnoses or Management Options: Viral infection, bacterial sinus infection. - Amount and Complexity of Data Reviewed: Physical examination, patient history, prescription management. - Risk of Complication and Morbidity or Mortality: Low risk due to absence of fever and normal oxygen levels, potential risk if bacterial infection develops. Britt Francis MD Patient consented to the use of ERICH for this patient encounter. Medical Records Medical records reviewed: Yes I reviewed the patient's medical records. 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, managed with moisturizer (no family history of oral or esophageal cancer-felt to be adequate to rule out any rare variance of this condition that can be associated with above concerns) Internal hemorrhoids without complication (Chronic) Hiatal hernia (Chronic) Glaucoma of both eyes (Chronic 11/18/17) GERD (gastroesophageal reflux disease) (Chronic 10/20/14) 2018 nl EGD Cardiac arrhythmia (Chronic 04/03/12) Allergic rhinitis due to other allergen (Chronic 03/23/15) Allergic rhinitis (Chronic) Alcohol abuse (Chronic) quit 2008 Medical History Screen for colon cancer Smoking Hiatal hernia Hypertension Seasonal rhinitis Right kidney stone Hyperlipidemia type IV History of back surgery Right inguinal hernia Internal hemorrhoid Alcohol abuse Diverticulosis Surgical History History of esophagogastroduodenoscopy (EGD) (12/2022) [place] H/O colonoscopy (12/2022) History of esophagogastroduodenoscopy (EGD) (01/20/18) Dr Swan, repeat PRN H/O colonoscopy (01/20/18) Dr Swan, tubular adenoma, repeat in five years. Lithotripsy 2003 HERNIA REPAIR (~2005) [place] [facility] [place] [facility] [place] Family History Mother , age 79 Heart disease Stroke Father , age 63 Alcohol abuse Heart disease Sister , age 30 Depression Mental disorder Depression Brother No problems noted. Maternal Grandfather , age 68 Essential hypertension Heart disease Paternal Grandfather , age 76 Essential hypertension Heart disease Maternal Grandmother , age 92 Colon cancer Paternal Grandmother , age 93 Essential hypertension Heart disease Brother , age 74 Lung cancer Brother No problems noted. Daughter No problems noted. Sister , age 48 No problems noted. Social History Smoking/Tobacco Use Status: Former Tobacco Use tobacco type: cigarettes and e- cigarettes Quit Date: 03/31/04 Tobacco: How many years used: 25 Quit status: quit date established Second Hand Exposure: Yes Smoking risk assessment performed?: Yes Alcohol Intake: former Drug use: Current Sobriety Substance use type: does not use Caregiver/Support person: No Household members: spouse Housing: house Communication Needs: None Do you need help understanding health information?: Rarely Pets and animals: No Sexually active: No Do you think of yourself as: straight/heterosexual Current gender identity: male What is your relationship status?: How often do you talk on the phone with friends or family?: three or more times per week How often do you get together with friends or relatives?: three or more times per week How often do you attend buddhism or rastafari services?: 4 or more times per year Do you belong to any clubs or organized social groups?: no Panel score (0-1 are the most socially isolated patients): 3 What type of physical activity do you participate in: walking Duration: 30-45 minutes/day Frequency: 3-4 times per week Maryanne/Muslim: Spiritism Special maryanne needs: No Seatbelt use: always Helmet use: No Drive intox or ride w/intox otr flatbed company truck driver: No Do you feel safe at home: Yes Do you feel safe in your relationship?: Yes Victim of physical abuse: No Victim of emotional abuse: No Victim of sexual abuse: No Would you like helpful sources: No
== END 2024-07-19 10:44 | disposition home or self-care (01) ==
LOC: ER 11:08
PROVIDERS: Emergency Provider Emergency Medicine; PCP Family Medicine
DX: J01.90 Acute sinusitis, unspecified (principal); I10 Essential (primary) hypertension
CPT/HCPCS: 99283 ×2

== ENCOUNTER 2024-09-10 01:46 | Outpatient (CLI) | payer MEDICARE, SELFPAY ==
[2024-09-10 16:59] LABS: Hemoglobin A1C 6.4 % (<5.7)
[2024-09-10 17:32] LABS: CREATININE 1.2 mg/dL (0.70-1.30); Calculated LDL 104 mg/dL (<100); Cholesterol 201 mg/dL (<200); Estimated GFR 63.85 (mL/min/1.73m2); HDL Cholesterol 48 mg/dL (>or=40); Potassium 4.3 mmol/L (3.5-5.1); Triglyceride 248 mg/dL (<150); Vitamin B12 665 pg/mL (193-986)
== END 2024-09-10 01:47 | disposition home or self-care (01) ==
LOC: LBO 01:47
PROVIDERS: PCP Family Medicine; Visit Provider Family Medicine
DX: D64.9 Anemia, unspecified (principal); E11.51 Type 2 diabetes mellitus with diabetic peripheral angiopathy without gangrene; I70.209 Unspecified atherosclerosis of native arteries of extremities, unspecified extremity; I10 Essential (primary) hypertension; E78.5 Hyperlipidemia, unspecified
CPT/HCPCS: 36415; 80061; 82565; 82607; 83036; 84132

== ENCOUNTER 2024-09-14 01:46 | Outpatient (CLI) | payer MEDICARE, SELFPAY ==
--- NOTE | 2024-09-14 11:15 | DI.US_ITS ---
Exam(s) US AAA SCREENING EXAM: US AAA SCREENING CLINICAL HISTORY: Annual exam,TOBACCO USE,Z72.0 COMPARISON: There are no priors for comparison. FINDINGS: Abdominal Aorta: Proximal: 1.9 x 2.0 cm Mid: 1.7 x 1.8 cm Distal: 1.6 x 1.7 cm Iliac's: Right: 1.3 x 1.1 cm Left: 1.2 x 1.1 cm No significant atherosclerotic disease is seen. IMPRESSION: No evidence of abdominal aortic aneurysm. DATA REPOSITORY:
== END 2024-09-14 02:06 ==
LOC: DI 01:46
PROVIDERS: PCP Family Medicine; Visit Provider Family Medicine
DX: Z13.6 Encounter for screening for cardiovascular disorders (principal); Z72.0 Tobacco use
CPT/HCPCS: 76706